=== PATIENT | male | born 2000 | race Caucasian/White ===

== ENCOUNTER 2020-12-29 21:05 | Emergency (ER) | payer MEDICAID, OTHER ==
[~2020-12-29] VITALS: Ht 182.9 cm; Wt 75.0 kg
[2020-12-29 21:12] VITALS: BP 155/92
[2020-12-29] MEDS ORDERED: DOXY100C43 PO (21:51)
== END 2020-12-29 22:10 | disposition home or self-care (01) ==
LOC: ER 21:05
DX: L03.011 Cellulitis of right finger (principal); M79.644 Pain in right finger(s); Z79.2 Long term (current) use of antibiotics
CPT/HCPCS: 99283

== ENCOUNTER 2021-01-01 08:35 | Emergency (ER) | payer MEDICAID ==
[~2021-01-01] VITALS: Ht 182.9 cm; Wt 77.3 kg
[~2021-01-01 08:35] MED LIST: DOXY100C43 PO
[2021-01-01 08:43] VITALS: BP 142/82
[2021-01-01] MEDS ORDERED: LIDOcaine 1% 30ml preserv. free vial IJ ONE (09:05)
== END 2021-01-01 10:02 | disposition home or self-care (01) ==
LOC: ER 08:35
DX: L02.511 Cutaneous abscess of right hand (principal); Z79.2 Long term (current) use of antibiotics
CPT/HCPCS: 26010; 76882; 99284

== ENCOUNTER 2022-03-17 21:32 | Emergency (ER) | payer MEDICAID ==
[~2022-03-17] VITALS: Ht 180.3 cm; Wt 76.0 kg
[2022-03-17 22:20] LABS: CLARITY,URINE CLEAR (Clear); COLOR,URINE YELLOW (Yellow); GLUCOSE, URINE NEGATIVE (Neg); KETONES,URINE NEGATIVE (Neg); LEUKOCYTE ESTERASE ,URINE NEGATIVE (Neg); NITRITES, URINE NEGATIVE (Neg); OCCULT BLOOD,URINE NEGATIVE (Neg); PROTEIN,URINE NEGATIVE (Neg)
[2022-03-17 22:22] LABS: UA COLLECTION TYPE CLN CATCH MIDSTREAM
[2022-03-18] MEDS ORDERED: azithromycin 250mg tablet PO ONE (00:25)
[2022-03-18] MEDS ORDERED: CefTRIAXone 1000mg IM Kit (w/lidocaine diluent) IM ONE (00:25)
--- NOTE | 2022-03-18 00:50 | NUR ---
po med given im given
== END 2022-03-18 01:06 | disposition home or self-care (01) ==
LOC: ER 21:33
DX: Z20.2 Contact with and (suspected) exposure to infections with a predominantly sexual mode of transmission (principal); R30.9 Painful micturition, unspecified; R30.0 Dysuria
CPT/HCPCS: 36415; 81003; 87491; 87591; 96372; 99283; J0696

== ENCOUNTER 2025-01-19 15:13 | Emergency (ER) | payer MEDICAID, OTHER ==
[~2025-01-19] VITALS: Ht 180.3 cm; Wt 96.5 kg
[2025-01-19 15:19] VITALS: BP 143/96; PULSE 101; RESP 18; TEMP 98.5; O2SAT 96
[2025-01-19] MEDS: ibuprofen tablet 400 MG TABLET PO ONE (15:50)
[2025-01-19] MEDS: acetaminophen 325mg tablet PO ONE (15:50)
[2025-01-19] MEDS: TETanus/Pertussis (Acell)/Diphther VAC/PF (Tdap-Adult) 0.5ml syringe IMVAC ONE (15:52)
== END 2025-01-19 16:00 | disposition home or self-care (01) ==
LOC: ER 15:14
DX: T23.211A Burn of second degree of right thumb (nail), initial encounter (principal); X08.8XXA Exposure to other specified smoke, fire and flames, initial encounter; Y93.89 Activity, other specified; Y92.89 Other specified places as the place of occurrence of the external cause; Y99.8 Other external cause status
CPT/HCPCS: 16000; 90471; 90715; 99283; A6258; A6446